=== PATIENT | male | born 1995 | race Caucasian/White ===

== ENCOUNTER 2016-07-28 15:58 | Emergency (ER) | payer BC ==
[~2016-07-28] VITALS: Ht 190.5 cm; Wt 87.3 kg
[2016-07-28 16:01] VITALS: TEMP 36.8; Ht 190.5 cm; Wt 87.3 kg
[2016-07-28] MEDS ORDERED: XYLOCAINE 1%/SOD BICARB 20 ML VIAL INFIL ONE (16:30)
[2016-07-28] MEDS ORDERED: BUPIVACAINE 0.5 % 5 MG/1 ML MPF 30ML VIAL INFIL ONE (16:30)
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
[2016-07-28] MEDS ORDERED: CEPHALEXIN MONOHYDRATE 250 MG CAP PO ONE (17:15)
[2016-07-28] MEDS ORDERED: CEPH500C2 PO (17:22)
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
[2016-07-28 17:47] VITALS: BP 155/80; PULSE 76; O2SAT 98
== END 2016-07-28 17:50 | disposition home or self-care (01) ==
LOC: C.EDB 15:59 → C.EDD 17:50
DX: S62.635B Displaced fracture of distal phalanx of left ring finger, initial encounter for open fracture (principal); W23.0XXA Caught, crushed, jammed, or pinched between moving objects, initial encounter